=== PATIENT | female | born 1970 | race Caucasian/White ===

== ENCOUNTER 2016-10-10 00:09 | Emergency (ER) | payer OTHER ==
[2016-10-10] MEDS ORDERED: IBUPROFEN 800 MG TABLET ONE (03:34)
== END 2016-10-10 03:51 | disposition home or self-care (01) ==
LOC: ED 00:09
DX: H10.33 Unspecified acute conjunctivitis, bilateral (principal); F17.210 Nicotine dependence, cigarettes, uncomplicated
CPT/HCPCS: 87070; 87205; 99283 ×2; A9270